=== PATIENT | male | born 1995 | race Two or more races ===

== ENCOUNTER 2025-02-08 19:37 | Emergency (ER) | payer SELFPAY ==
[2025-02-08 19:40] VITALS: BMI 25.0
[2025-02-08 20:39] VITALS: BP 141/85; PULSE 68; RESP 20; TEMP 36.3; O2SAT 97
--- NOTE | 2025-02-08 20:44 | XR_ITS ---
Examination: Knee, right , 3 views Technique: Knee AP, lateral, oblique 3 views Date and time of exam: February 08, 2025 2102 hours INDICATIONS: Patient fell today with injury to the knee, knee pain FINDINGS: Soft tissue defect at the level of the patellar tendon No fracture No dislocation IMPRESSION: No fracture MRI knee without contrast follow-up would best assess for partial tear of the patellar tendon
--- NOTE | 2025-02-08 20:44 | XR_ITS ---
Examination: Ribs, right, with PA chest, 5 views Technique: Chest PA, RIBS AP, RPO, LPO, AP coned lower ribs 5 views Exam date and time: February 08, 2025, 2050 hours INDICATIONS: Patient fell today with injury to the right chest, right rib pain Findings: Normal heart size. No pneumothorax Minimal AC joint offset No acute rib fractures IMPRESSION: No pneumothorax, pulmonary contusion or hemothorax No acute rib fractures. Age indeterminate minimal AC joint separation
--- NOTE | 2025-02-08 20:45 | PD.EDRME ---
Rapid Medical Screening Exam [facility] Arrival date/time: 02/08/25 19:37 29M with no significant PMH presents to ED with R rib and knee pain after slip and fall while setting up some trailers. Patient has some SOB, but denies hitting head/neck. Patient has not had a tetanus shot in the past 5 years. Chief Complaint: Fall Vital signs: Vital Signs Temperature 97.4 F 02/08/25 20:39 Pulse Rate 68 02/08/25 20:39 Respiratory Rate 20 02/08/25 20:39 Blood Pressure 141/85 H 02/08/25 20:39 Pulse Oximetry (%) 97 02/08/25 20:39 Oxygen Delivery Method Room Air 02/08/25 20:39
[2025-02-08] MEDS: DIPHTH,PERTUSS(ACELL),TET VAC 0.5 ML SYR- ADULT IMi (21:38)
[2025-02-08 21:43] VITALS: BP 108/69; PULSE 68; RESP 18; TEMP 36.7; O2SAT 99
[2025-02-08 23:11] VITALS: BP 132/79; PULSE 68; RESP 18; TEMP 36.8; O2SAT 97
--- NOTE | 2025-02-08 23:13 | PD.EDFALL ---
ED Fall Injury RME/HPI General Chief Complaint: Fall Stated Complaint: FALL RT RIB PAIN, RT KNEE LAC Source: patient Arrival date/time: 02/08/25 19:37 Mode of arrival: ambulatory Limitations: no limitations RME / HPI RME / HPI Narrative: 02/08/25 19:37 29M with no significant PMH presents to ED with R rib and knee pain after slip and fall while setting up some trailers. Patient has some SOB, but denies hitting head/neck. Patient has not had a tetanus shot in the past 5 years. --------- Dr. Patricio?s Main ED Evaluation: 29yo male presents to the ED for a chief complaint of a fall. 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 Patient denies any head strikes or LOC. He reports associted shortness of breath, right rib pain, and right knee pain. He denies any other associated symptoms. No known allergies. Related Data Previous Rx's ?Medication ?Instructions ?Recorded acetaminophen 500 mg capsule 1,000 mg (2 x 500 mg) PO Q6H PRN 02/08/25 pain #30 caps ibuprofen 600 mg tablet 600 mg PO Q6H PRN pain #20 tabs 02/08/25 Allergies Allergy/AdvReac Type Severity Reaction Status Date / Time No Known Allergies Allergy Verified 02/08/25 19:39 Review of Systems Review of Systems Systems Reviewed: All systems reviewed, normal except as documented Past Medical History Social History SMOKING STATUS: Never smoker ED Exam Narrative Physical exam: GENERAL APPEARANCE: alert and oriented x 4, well-developed, well-nourished, no acute distress VITALS: All vitals were reviewed and the pulse ox is 99% on room air, which is normal according to my interpretation. HEENT: Normocephalic, atraumatic; pupils equal, round, reactive to light; EOMI; mucous membranes pink, moist; oropharynx clear NECK: Supple LUNGS: CTABL; no wheezes, no rales, no rhonchi HEART: Regular rate, regular rhythm; normal S1, S2; no murmurs; contusion to the anterolateral aspect overlying the lower right ribs with a superficial abrasion and mild tenderness ABDOMEN: non distended; normal BS; soft, no tenderness, no guarding, no rebound; no masses, no organomegaly, no hernia BACK: no CVA tenderness EXTREMITIES: 7 cm macerated laceration over the right patella; no edema NEUROLOGIC: awake; alert and oriented x4; cranial nerves II-XII grossly intact; no focal sensory or motor deficits PSYCHIATRIC: appropriate mood and affect SKIN: warm, dry, normal color; no rashes General Limitations: Present no limitations Course Quality Measures none Orders Category Date Time Status Miscellaneous Nursing Order NOW Care 02/08/25 23:23 Completed Set Up Suture Tray STAT Care 02/08/25 20:44 Completed Wound Care NOW Care 02/08/25 20:44 Completed XR knee RT 3V Stat Exams 02/08/25 20:44 Completed XR ribs RT min 3V w CXR1V Stat Exams 02/08/25 20:44 Completed HYDROcodone/APAP 10/325 [Sieper 10/325] Med 02/08/25 23:55 Discontinued 1 tab PO X1 ONE Ketorolac Inj [Toradol Inj] Med 02/08/25 23:55 Discontinued 60 mg IM X1 ONE Lidocaine 1% 20 ml [Xylocaine 1% 20 ML] Med 02/08/25 23:23 Discontinued 20 ml INFL X1 ONE TET,DIP/PERT AC (Adult)-Tdap [Boostrix Adult (Tdap) Med 02/08/25 20:44 Discontinued Vacc] 0.5 ml IMI .ONCE ONE Vital Signs Vital signs: Vital Signs Temperature 97.4 F 02/08/25 20:39 Pulse Rate 68 02/08/25 20:39 Respiratory Rate 20 02/08/25 20:39 Blood Pressure 141/85 H 02/08/25 20:39 Pulse Oximetry (%) 97 02/08/25 20:39 Oxygen Delivery Method Room Air 02/08/25 20:39 Fall MDM Narrative MDM Narrative:: Scribe Attestation: 02/08/25 Jeanne Franco am scribing for and in the presence of Dr. Patricio. Laceration repair was completed by GUERLINE Antonio. See his note for details. Patient data External records reviewed:: [facility] previous records (Per chart review, patient has no previous ED visits or admissions to this facility.) Clinical information provided by:: patient Social determinants that could affect healthcare access:: none Patient has the following chronic illnesses:: none How is presenting disease/condition affected by chronic disease/condition?: no chronic disease Evaluation data The following diagnostics were reviewed and interpreted by me:: radiology exam(s) Lab and/or radiology exams considered but not ordered:: none Interpretation Summary: [facility] Report Signed Patient: ARTHUR PRITCHARD Record#: [id number] Birthdate: 1995 Age/Sex: 29 / M Location: [facility] Attending Dr: Ordering Physician: Vasquez Antonio PA-C Date of Service: 02/08/25 Procedure(s): XR ribs RT min 3V w CXR1V Accession Number(s): [id number] cc: Mian Hicks MD; NO PRIMARY/FAMILY,PHYSICIAN; Vasquez Antonio PA-C~ Examination: Ribs, right, with PA chest, 5 views Technique: Chest PA, RIBS AP, RPO, LPO, AP coned lower ribs 5 views Exam date and time: February 08, 2025, 2050 hours INDICATIONS: Patient fell today with injury to the right chest, right rib pain Findings: Normal heart size. No pneumothorax Minimal AC joint offset No acute rib fractures IMPRESSION: No pneumothorax, pulmonary contusion or hemothorax No acute rib fractures. Age indeterminate minimal AC joint separation Dictated By: Mian Hicks MD Signed By: <Electronically signed by Mian Hicks MD in [place]> 02/08/252146 [facility] Signed Patient: ARTHUR PRITCHARD Record#: [id number] Birthdate: 1995 Age/Sex: 29 / M Location: [facility] Attending Dr: Ordering Physician: Vasquez Antonio PA-C Date of Service: 02/08/25 Procedure(s): XR knee RT 3V Accession Number(s): [id number] cc: Mian Hicks MD; NO PRIMARY/FAMILY,PHYSICIAN; Vasquez Antonio PA-C~ Examination: Knee, right , 3 views Technique: Knee AP, lateral, oblique 3 views Date and time of exam: February 08, 2025 2102 hours INDICATIONS: Patient fell today with injury to the knee, knee pain FINDINGS: Soft tissue defect at the level of the patellar tendon No fracture No dislocation IMPRESSION: No fracture MRI knee without contrast follow-up would best assess for partial tear of the patellar tendon Dictated By: Mian Hicks MD Signed By: <Electronically signed by Mian Hicks MD in [place]> 02/08/25 9621 Medications / Prescriptions Medications or Prescriptions considered but not ordered:: none Medication administrations:: Medication Administration History Discontinued Medications Hydrocodone Bitart/Acetaminophen (Hydrocodone/Apap 10/325 Tab) 1 tab PO X1 ONE Stop: 02/08/25 23:56 Last Admin: 02/09/25 00:09 Dose: 1 tab Documented By: WO Diphtheria/Tetanus/Acell Pertussis (Diphth,Pertuss(Acell),Tet Vac 0.5 Ml Syr- Adult) 0.5 ml IMi .ONCE ONE Stop: 02/08/25 20:45 Last Admin: 02/08/25 21:38 Dose: 0.5 ml Documented By: Ketorolac Tromethamine (Ketorolac Inj 60 Mg/2 Ml Vial) 60 mg IM X1 ONE Stop: 02/08/25 23:56 Last Admin: 02/09/25 00:08 Dose: 60 mg Documented By: WO Lidocaine HCl (Lidocaine Hcl 1% 20 Ml Vial) 20 ml INFL X1 ONE Stop: 02/08/25 23:24 Last Admin: 02/08/25 23:56 Dose: 20 ml Documented By: WO Comments: Administered by provider at bedside see above Consultations Consultation(s) initiated? (list below): No Diagnosis Fall Differential Diagnosis: other (knee fx, patellar fx, patellar dislocation, open joint, rib fx, rib dislocation) Most likely diagnosis given after review of the tests above:: see clinical impression below Admission Indicated Admission indicated?: not indicated Admission Request Was there a request for admission?: No Disposition Plan Disposition Plan: Discharge Discharge Attestation Discharge Attestation: The patient and all family members were given an opportunity to ask questions and understood the discharge instructions. Discharge instructions specifically effects, indications for sooner follow up or return to the emergency department, and the expected course of current diagnosis. Patient condition: Stable Discharge Plan Plan Patient Disposition: HOME (Self Care) Disposition Comment: Stable for discharge home Patient condition on transfer: Stable Prescriptions/Referrals Prescriptions/Med Rec: New ibuprofen 600 mg tablet 600 mg PO Q6H PRN (Reason: pain) Qty: 20 0RF acetaminophen 500 mg capsule 1,000 mg PO Q6H PRN (Reason: pain) Qty: 30 0RF [facility] - [facility] 1 week Problem List Clinical Impression: Laceration of knee, Abrasion over rib Patient/Caregiver Discharge Instructions Discharge Activity: activity as tolerated Education Materials: ED Laceration: All Closures Additional Instructions: Please return to the emergency department if you have any worsening or any further medical problems and we will help you. Otherwise you should follow-up with the [facility] within the next several days. You need to have the sutures removed in about 7 days. You go to an urgent care, the [facility] or back to the emergency department. Print Language: Luxembourger Stand Alone Forms: [employer] Award Info., Patient Portal Info Letter
[2025-02-08 23:21] VITALS: BP 132/79; PULSE 68; RESP 18; TEMP 36.8; O2SAT 97
[2025-02-08] MEDS: LIDOCAINE HCL 1% 20 ML VIAL INFL (23:56)
--- NOTE | 2025-02-08 23:57 | PD.EDADDENDU ---
Emergency Room Addendum Addendum Narrative: Laceration 1: Site: lower extremity Side (If applicable): right Size (cm): 7 Description: linear Depth: simple, single layer Local Anesthetic: lidocaine 1% Amount of anesthesia used (mL): 10 Pre-repair: irrigated extensively and deep structures intact Skin layer closed with: nylon Size (cm): 4-0 Number of sutures: 8 Technique: simple, interrupted
[2025-02-09] MEDS: KETOROLAC INJ 60 MG/2 ML VIAL IM (00:08)
[2025-02-09] MEDS: HYDROcodone/APAP 10/325 TAB PO (00:09)
[2025-02-09 00:24] VITALS: BP 128/79; PULSE 65; RESP 18; TEMP 36.6
== END 2025-02-09 00:27 | disposition home or self-care (01) ==
PROVIDERS: Emergency Provider Emergency Medicine
DX: S81.011A Laceration without foreign body, right knee, initial encounter (principal); W01.0XXA Fall on same level from slipping, tripping and stumbling without subsequent striking against object, initial encounter; Z23 Encounter for immunization; R06.02 Shortness of breath; R07.81 Pleurodynia
CPT/HCPCS: 12002; 71101; 73562; 90471; 90715; 96372; 99283; J1885; J3490; A9270